=== PATIENT | female | born 1955 | race Caucasian/White ===

== ENCOUNTER → 2017-02-22 | Outpatient (CLI) | payer OTHER | END | disposition home or self-care (01) | LOC: GMAB 10:39 | PROVIDERS: ATTEND Family Medicine | DX: E03.9 Hypothyroidism, unspecified (principal) ==

== ENCOUNTER → 2017-05-13 | Outpatient (CLI) | payer OTHER ==
--- NOTE | 2017-05-14 10:36 | MAM ---
EXAM DESCRIPTION: Screening Mammogram,Bilateral CLINICAL HISTORY: 62 yearsFemaleSCREENINGno complaints. No family history breast cancer. Postmenopausal. No HRT. COMPARISON: 2-D screening bilateral digital mammography 07/21/2014. No prior reports available. Report from prior examination also reviewed. TECHNIQUE: Bilateral CC and MLO projection full-field images, 2-D digital screening mammographic technique. CAD was utilized. FINDINGS: The breast parenchymal density pattern is: Scattered areas of fibroglandular density. No skin thickening or nipple retraction multiple right axillary lymph nodes again noted.. Bilateral solitary microcalcifications. No focal, stellate mass or density, focal asymmetry , and no suspicious microcalcifications bilaterally. Stable mammograms dating back to prior study July 2014. IMPRESSION: BI-RADS CATEGORY: 2 - BENIGN FINDINGS. FOLLOW UP: Routine digital bilateral screening, one year interval from April 2017. Written communication explaining the IMPRESSION and follow-up, will be mailed to the patient and referring health care provider. According to the [employer], yearly mammograms are recommended starting at age 40 and continuing as long as a woman is in good health. Any breast change noted on a breast self-exam should be reported promptly to the patient's healthcare provider. Breast MRI is recommended for women with an approximately 20-25% or greater lifetime risk of breast cancer, including women with a strong family history of breast or ovarian cancer and women who have been treated for Hodgkin's disease. A negative mammographic report should not delay tissue diagnosis in patients with significant clinical history or physical findings. Extremely dense breast tissue limits the sensitivity of digital mammography. Electronically signed by: Michael Molina MD 05/14/2017 10:34 AM CDT
== END | disposition home or self-care (01) ==
LOC: MAMMO 10:40
PROVIDERS: ATTEND Family Medicine
DX: Z12.31 Encounter for screening mammogram for malignant neoplasm of breast (principal)

== ENCOUNTER → 2018-07-04 | Outpatient (CLI) | payer OTHER ==
--- NOTE | 2018-07-05 21:47 | RAD ---
EXAM DESCRIPTION: Foot,Right 3 Views: CR/ CLINICAL HISTORY: FOOT PAIN COMPARISON: Other orthopedic radiographs on this visit. TECHNIQUE: AP, lateral, and oblique images 3 views right foot. FINDINGS: Narrowing of the IP joints of the second through fourth toes. Arthrosis with marginal spurs superiorly in the second and third tarsometatarsal joints oriented no fractures. No abnormal radiodense objects in the soft tissues. IMPRESSION: Moderate Arthrosis in the second and third tarsometatarsal joints. No acute bony abnormality. Minimal arthrosis in the IP joints of the second through fourth toes Electronically signed by: Michael Molina MD 07/05/2018 9:45 PM [facility]
--- NOTE | 2018-07-05 21:50 | RAD ---
EXAM DESCRIPTION: Knee,Left Complete CLINICAL HISTORY: 63 F KNEE PAIN COMPARISON: Multiple orthopedic radiographs. TECHNIQUE: AP, lateral and patellar sunrise 4 views left knee. FINDINGS: Marginal spurs in the lateral and medial patellofemoral joint. No suprapatellar effusion. No loose bodies. No acute bony abnormality. Spurs in the midline tibia. Moderate narrowing of the medial compartment. IMPRESSION: Minimal arthrosis in the patellofemoral joint with moderate arthrosis in the medial compartment. No acute bony abnormality. Electronically signed by: Michael Molina MD 07/05/2018 9:48 PM [facility]
--- NOTE | 2018-07-05 21:51 | RAD ---
EXAM DESCRIPTION: Pelvis CLINICAL HISTORY: LEFT HIP PAIN COMPARISON: Multiple orthopedic radiographs on the same visit. TECHNIQUE: AP view only. FINDINGS: No fracture dislocation. Bone density. Hypertrophy of the superior lateral left acetabular facet. No joint space narrowing. Air density in the bilateral SI joints and the pubic symphysis. No abnormal radiodense objects in the soft tissues or joint spaces. IMPRESSION: No fracture. Arthrosis as described. Electronically signed by: Michael Molina MD 07/05/2018 9:49 PM [facility]
== END ==
LOC: RAD 07-03 02:31
PROVIDERS: ATTEND Orthopaedic Surgery
DX: M25.562 Pain in left knee (principal); M25.552 Pain in left hip; M79.671 Pain in right foot; M12.89 Other specific arthropathies, not elsewhere classified, multiple sites

== ENCOUNTER 2019-02-25 06:00 | Inpatient (IN) | payer OTHER ==
--- NOTE | 2019-02-12 10:25 | HP ---
CHIEF COMPLAINT: Left knee pain. HISTORY OF PRESENT ILLNESS: Alayna is a 63-year-old female with a history of severe knee pain. The pain has been present for several months and she has tried injections, anti-inflammatories, physical therapy and activity modification. She has failed to get relief and this is affecting her daily functioning. The pain is sharp, but she also has pain at night that seems to be dull and aching. It has been unresponsive to any other medicines. Because of the failure of relief, she has requested operative intervention. After discussing the risks, benefits and alternatives to total knee arthroplasty, she has given informed consent. PAST SURGICAL HISTORY: None. MEDICATIONS: 1. Losartan. 2. Synthroid. ALLERGIES: PHENERGAN. CODE STATUS: Full code. IMMUNIZATIONS: Up to date. SOCIAL HISTORY: The patient does not drink, smoke or use any illicit drugs. FAMILY HISTORY: None pertinent to today's complaint. REVIEW OF SYSTEMS: Negative except as indicated in the History of Present Illness. PHYSICAL EXAMINATION: VITAL SIGNS: Blood pressure 137/90. Pulse 89. Height 5'5". Weight 207 pounds. MENTAL STATUS: The patient is awake, alert, and is able to give a good history and participate in the physical. The patient is oriented to person, place and time. SKIN: Normal tone and turgor. HEENT: Normocephalic, atraumatic. Pupils equal, round and reactive. Mucosal membranes are moist. NECK: Normal range of motion. No thyromegaly, no lymphadenopathy. CHEST: Normal respiratory excursion. CARDIAC: Regular rate and rhythm. No murmurs, rubs or gallops. MUSCULOSKELETAL: She has bilateral upper extremities that show full active range of motion. She has intact sensation. They are warm and well perfused. There is no deformity. Strength is 5/5. She has no crepitus. The right lower extremity shows full active range of motion. She has intact sensation and it is warm and well perfused. The extremity has no deformity and no crepitus. There is no malalignment. The left lower extremity shows full range of motion of the hip. Range of motion in the knee is from full extension to about 120 degrees, but she has crepitus and pretty severe pain throughout that range. She has severe tenderness to palpation. She has no overall malalignment. There is no deformity. She has no varus/valgus or anterior/posterior laxity. Strength is 5/5. She walks with a slight antalgic gait. IMAGING: X-rays show advanced arthritis. ASSESSMENT: 1. Osteoarthritis. PLAN: The plan at this point is for total knee arthroplasty. We have discussed the risks, benefits, and alternatives to that and the patient has given informed consent. [id number]
[~2019-02-25 06:00] MED LIST changes: -HYDROmorphone PCA 0.2 MG/ML 1 BAG BAG IVPB SCH; +SODIUM CHL 0.9% 100ML MINI-BAG 100 ML IVPB ONE; +SODIUM CHLORIDE 0.9% 100ML 100 ML IVPB ONE; +SODIUM CHLORIDE 0.9% 250ML 250 ML ONE; +TRANEXAMIC ACID 1,000 MG/10 ML VIAL ONE; +VANCOMYCIN HCL INJ 1,000 MG VIAL IVPB ONE; +ceFAZolin SODIUM 1 GM VIAL ONE
[2019-02-25] MEDS ORDERED: ACETAMINOPHEN IV 1000MG 100 ML ONE (06:29)
[2019-02-25] MEDS ORDERED: fentaNYL CITRATE INJ 50 MCG/ML AMP ONE (06:29)
[2019-02-25] MEDS ORDERED: MORPHINE SULFATE *EPIDURAL* 0.5 MG/ML VIAL ONE (06:29)
[2019-02-25] MEDS ORDERED: MIDAZOLAM INJ 5 MG/5 ML VIAL ONE (06:29)
[2019-02-25] MEDS ORDERED: BUPIVACAINE 0.5% 30 ML VIAL INJ ONE (06:42)
[2019-02-25] MEDS ORDERED: ceFAZolin SODIUM 1 GM VIAL ONE ×2 (06:42→16:04)
[2019-02-25] MEDS ORDERED: KETAMINE HCL 100 MG/ML VIAL ONE (06:45)
[2019-02-25] MEDS: VANCOMYCIN HCL INJ 1,000 MG VIAL IVPB ONE ×2 (07:51→08:57)
[2019-02-25] MEDS: BUPIVACAINE 0.5% 30 ML VIAL INJ ONE ×2 (07:51→08:56)
[2019-02-25] MEDS: ceFAZolin SODIUM 1 GM VIAL ONE ×2 (07:51→08:57)
[2019-02-25] MEDS: BUPIVACAINE LIPOSOME 13.3 MG/ML VIAL INJ ONE ×2 (07:52→08:56)
[2019-02-25] MEDS ORDERED: ELECTROLYTE-A 1,000 ML IVS ONE (08:36)
[2019-02-25] MEDS ORDERED: SODIUM CHLORIDE 0.9% (FLUSH) 10 ML SYG IV PRN (09:19)
[2019-02-25] MEDS ORDERED: BISACODYL SUPPOSITORY 10 MG PR PRN (09:19)
[2019-02-25] MEDS ORDERED: MORPHINE SULFATE INJ 10 MG/ML VIAL IV PRN (09:19)
[2019-02-25] MEDS ORDERED: ZOLPIDEM TARTRATE 5 MG TAB PO PRN (09:19)
[2019-02-25] MEDS ORDERED: BENZOCAINE-MENTH LOZ (CEPACOL) 1 EA LOZ MT PRN (09:19)
[2019-02-25] MEDS ORDERED: TRANEXAMIC ACID INJ 1,000 MG in SODIUM CHLORIDE 0.9% 100ML 100 ML IVPB ONE (09:19)
[2019-02-25] MEDS ORDERED: TEMAZEPAM 15 MG CAP PO PRN (09:19)
[2019-02-25] MEDS ORDERED: ACETAMINOPHEN 500 MG TAB PO PRN (09:19)
[2019-02-25] MEDS ORDERED: DEX 5% W/NACL 0.45% 1000ML 1,000 ML IVS PRN (09:19)
[2019-02-25] MEDS ORDERED: MAGNESIUM HYDROXIDE 30 ML UD PO PRN (09:19)
[2019-02-25] MEDS ORDERED: MORPHINE SULFATE INJ 10 MG/ML VIAL IM PRN (09:19)
[2019-02-25] MEDS ORDERED: NALOXONE HCL INJ 0.4 MG/ML VIAL IV PRN (09:19)
[2019-02-25] MEDS ORDERED: HYDROcodone 5MG/APAP 325MG 1 EA TAB PO PRN (09:19)
[2019-02-25] MEDS ORDERED: ACETAMINOPHEN 325 MG TAB PO PRN (09:19)
[2019-02-25] MEDS ORDERED: MORPHINE PCA 1 MG/ML 100 ML BAG IVPB SCH (09:30)
--- NOTE | 2019-02-25 10:31 | OP ---
DATE OF PROCEDURE: 02/25/19 PREOPERATIVE DIAGNOSIS: 1. Left knee osteoarthritis. POSTOPERATIVE DIAGNOSIS: 1. Left knee osteoarthritis. PROCEDURE: 1. Total knee arthroplasty. SURGEON: Cesar Barboza MD. CREDIT OR LOANS OFFICER: Michael Herrmann CST, SA-C. ANESTHESIA: Regional anesthesia with sedation. COMPLICATIONS: None. FINDINGS: Severe arthritis of the knee. INDICATION: Ms. Acosta has a history of severe knee pain which has been refractory to conservative measures. Because of the ongoing pain, she has requested operative intervention. After discussing the risks, benefits and alternatives to total knee arthroplasty, the patient has given informed consent. PROCEDURE: The patient was brought to the Operating Room and placed in supine position. Anesthesia was induced and the patient's leg was sterilely prepped and draped. Following prepping and draping, the distal femur was exposed and using an intramedullary guide, the distal femoral cut was made. The appropriate sized cutting block was measured, pinned into place, and the anterior, posterior, and chamfer cuts were made. The ACL was transected and the tibia was subluxed. Both the medial and lateral menisci were removed. An intramedullary guide was used to make the proximal tibial cut. The appropriate sized base plate was placed and a trial polyethylene was placed. The trial femur was placed, the knee was reduced, and the knee was taken through a range of motion. The knee was stable in anterior, posterior, varus and valgus stress. The patella tracked anatomically without evidence of subluxation or dislocation. After trialing, the trial components were removed and the bony surfaces were thoroughly irrigated with saline. Following irrigation, the surfaces were dried and the final components were cemented into place. The excess cement was removed and the remaining cement was allowed to cure. The knee was again taken through a range of motion to confirm stability. The wound was then irrigated with saline and closure was performed using PDS to approximate the arthrotomy followed by closure of the subcutaneous tissues with a combination of running and interrupted Monocryl sutures. Sterile dressing was placed. The patient was awoken from anesthesia and taken to Recovery. POSTOPERATIVE PLAN: The patient will be weight-bearing as tolerated on postoperative day 1. COMPONENTS: [employer] Triathlon knee, size 3 femur, size 3 tibia, 11 mm insert. #[id number] [facility]
[2019-02-25] MEDS ORDERED: HYDROmorphone PCA 0.2 MG/ML 1 BAG BAG IVPB ONE (11:52)
[2019-02-25] MEDS: ONDANSETRON INJ 4 MG/2 ML VIAL IV PRN ×2 (12:07→17:38)
[2019-02-25] MEDS ORDERED: HYDROmorphone PCA 0.2 MG/ML 1 BAG BAG IVPB SCH (12:10)
[2019-02-25] MEDS: IV SET AND CAP CHANGE INJ INJ SCH (12:34)
[2019-02-25] MEDS ORDERED: PROPOFOL 200 MG/20 ML VIAL IV ONE (13:00)
[2019-02-25] MEDS ORDERED: raNITIdine HCL INJ 25 MG/ML VIAL IV ONE (13:00)
[2019-02-25] MEDS ORDERED: METOCLOPRAMIDE HCL INJ 10 MG/2 ML VIAL IV ONE (13:00)
[2019-02-25] MEDS ORDERED: ePHEDrine SULF 50 MG/ML IV ONE (13:00)
[2019-02-25] MEDS ORDERED: LIDOCAINE 1% 10 ML VIAL INJ ONE (13:00)
[2019-02-25] MEDS ORDERED: SODIUM CHLORIDE 0.9% 50 ML VIAL INJ ONE (13:00)
[2019-02-25] MEDS ORDERED: DEXAMETHASONE INJ 10 MG/ML VIAL IV ONE (13:00)
--- NOTE | 2019-02-25 13:20 | RAD ---
EXAM DESCRIPTION: Fluoroscopy Up to 1Hr CLINICAL HISTORY: left tka COMPARISON: 04 July 2018 TECHNIQUE: Fluoroscopy time is 6 seconds, one spot film. FINDINGS: Exam demonstrates a left total knee arthroplasty. Positioning is near anatomic. IMPRESSION: Left total knee arthroplasty. Electronically signed by: Jose Umanzor MD 02/25/2019 1:18 PM CDT
--- NOTE | 2019-02-25 13:31 | RAD ---
EXAM DESCRIPTION: Knee,Left 2 or More Views CLINICAL HISTORY: 63 years Female, TKA TECHNIQUE: 2 views of the left knee were performed. COMPARISON: July 04, 2018. FINDINGS: Mild diffuse osteopenia of the visualized bones noted. Recent postsurgical changes consistent with a left total knee arthroplasty, with intact hardware. The hardware appears in near normal anatomic alignment. Subcutaneous air pockets are noted likely sequela of recent surgery. Small suprapatellar joint effusion noted. IMPRESSION: 1. Recent postsurgical changes consistent with left total knee arthroplasty. The hardware appears in near normal anatomic alignment. Electronically signed by: Simon Reese MD 02/25/2019 1:29 PM CDT
[2019-02-25] MEDS ORDERED: ceFAZolin SODIUM 2 GRAMS PREMI 2 GM in PREMIX BAG 1 BAG IVPB SCH (16:00)
[2019-02-25] MEDS ORDERED: SODIUM CHL 0.9% 50ML MIN-BAG+ 50 ML IVPB ONE (16:05)
[2019-02-25] MEDS: ceFAZolin SODIUM 2 GM in SODIUM CHL 0.9% 50ML MIN-BAG+ 50 ML IVPB SCH ×2 (16:09→16:16)
[2019-02-25] MEDS: CELECOXIB 100 MG CAP PO SCH (16:10)
[2019-02-25] MEDS ORDERED: SODIUM CHLORIDE 0.9% 100ML 100 ML IVPB ONE (16:16)
[2019-02-25] MEDS: ceFAZolin SODIUM 2 GM in SODIUM CHLORIDE 0.9% 100ML 100 ML IVPB SCH (16:19)
[2019-02-25] MEDS ORDERED: VANCOMYCIN HCL INJ 1,000 MG VIAL IVPB ONE (17:34)
[2019-02-25] MEDS ORDERED: SODIUM CHLORIDE 0.9% 250ML 250 ML ONE (17:34)
[2019-02-25] MEDS: VANCOMYCIN HCL INJ 1,000 MG in SODIUM CHLORIDE 0.9% 250ML 250 ML IVPB SCH (17:39)
[2019-02-25] MEDS ORDERED: DOCUSATE CALCIUM 240 MG CAP ONE (18:57)
[2019-02-25] MEDS ORDERED: ENOXAPARIN SODIUM 30 MG/0.3 ML SYG SUBCU ONE (18:58)
[2019-02-25] MEDS ORDERED: diphenhydrAMINE HCL 50 MG/ML VIAL ONE (20:15)
[2019-02-25] MEDS ORDERED: diphenhydrAMINE HCL 25 MG CAP ONE (20:21)
[2019-02-25] MEDS: DOCUSATE CALCIUM 240 MG CAP PO SCH (20:24)
[2019-02-25] MEDS: diphenhydrAMINE HCL 25 MG CAP PO PRN (20:33)
[2019-02-25] MEDS: CYCLOBENZAPRINE HCL 10 MG TAB PO PRN (21:51)
[2019-02-25] MEDS: ALUMINUM & MAGNESIUM HYDROXIDE 30 ML UD PO PRN (22:13)
[2019-02-25] MEDS: HYDROcodone 10MG/APAP 325MG 1 EA TAB PO PRN (22:32)
[2019-02-25] MEDS: ENOXAPARIN SODIUM 30 MG/0.3 ML SYG SUBCU SCH (22:33)
[2019-02-26] MEDS ORDERED: ceFAZolin SODIUM 1 GM VIAL ONE ×4 (00:39→19:29)
[2019-02-26] MEDS ORDERED: SODIUM CHLORIDE 0.9% 100ML 100 ML IVPB ONE ×4 (00:39→19:29)
[2019-02-26] MEDS: ceFAZolin SODIUM 2 GM in SODIUM CHLORIDE 0.9% 100ML 100 ML IVPB SCH ×4 (01:00→23:41)
[2019-02-26] MEDS: HYDROcodone 10MG/APAP 325MG 1 EA TAB PO PRN ×4 (03:21→19:52)
[2019-02-26] MEDS: diphenhydrAMINE HCL 25 MG CAP PO PRN ×2 (03:21→21:45)
[2019-02-26] MEDS ORDERED: SODIUM CHLORIDE 0.9% 250ML 250 ML ONE (05:15)
[2019-02-26] MEDS ORDERED: VANCOMYCIN HCL INJ 1,000 MG VIAL IVPB ONE (05:16)
[2019-02-26] MEDS: VANCOMYCIN HCL INJ 1,000 MG in SODIUM CHLORIDE 0.9% 250ML 250 ML IVPB SCH (05:35)
[2019-02-26] MEDS: CYCLOBENZAPRINE HCL 10 MG TAB PO PRN ×2 (05:36→19:53)
[2019-02-26] MEDS: CELECOXIB 100 MG CAP PO SCH ×2 (07:32→16:46)
--- NOTE | 2019-02-26 07:55 | CONS ---
SUPERVISING PHYSICIAN: Mary Taylor MD CHIEF COMPLAINT: Postoperative left total knee arthroplasty. HISTORY OF PRESENT ILLNESS: Ms. Acosta is a 63-year-old female that has a longstanding history of severe knee pain. She had tried multiple injections, anti-inflammatories along with physical therapy and activity modification without any significant result. Due to the failure outpatient conservative treatments and the fact that she was continuing to have sharp pain at night that was hindering her activities of daily living, she requested surgical intervention with left total knee arthroplasty. She was admitted for elective total knee arthroplasty. She had a successful spinal block in the Operating Room without any complications. She was seen in the immediate postoperative state in stable condition. PAST MEDICAL HISTORY: 1. Hypertension. 2. Hypothyroidism. PAST SURGICAL HISTORY: 1. Cholecystectomy. 2. Hysterectomy. 3. Bilateral tubal ligation. HOME MEDICATIONS: 1. Levothyroxine 150 mcg daily. 2. Losartan 100 mg daily. ALLERGIES: PROMETHAZINE. FAMILY HISTORY: Positive for heart disease. Mother at age 74 with a stroke and Alzheimer's. Father at age 74 with a stroke and heart disease. She has one brother who has a pacemaker. She has a sister that is healthy and one brother that is diabetic, at age 49 due to unsuccessful gastric bypass surgery and also had positive history of cerebrovascular accident. REVIEW OF SYSTEMS: CONSTITUTIONAL: Denies general malaise, fatigue, fevers or unintentional weight changes. HEENT: Negative for sore throats, earaches, nasal congestion, vision changes, hearing changes. RESPIRATORY: Negative for shortness of breath, wheezing, coughing, productive cough. CARDIOVASCULAR: Negative for chest pain, palpitations or syncopal episodes. GASTROINTESTINAL: Negative for nausea, vomiting, diarrhea, constipation or abdominal pain. GENITOURINARY: Negative for dysuria, hematuria, polyuria. MUSCULOSKELETAL: As noted in history of present illness. NEUROLOGIC: Negative for ataxia, seizures, syncopal episodes, vision changes, headache, migraines or other neurosensory deficits. PHYSICAL EXAMINATION: VITAL SIGNS: Temperature 97.5. Pulse 72. Blood pressure 121/79. Respirations 16. Oxygen saturation 94% on room air. Admission weight 93.6 kg. GENERAL: The patient is resting comfortably with her left leg in CPM. She is alert. HEENT: Tympanic membranes clear bilaterally. Oropharynx is pink, moist without any lesions. NECK: Supple, nontender with full range of motion. No jugular venous distention noted. RESPIRATORY: Lungs clear to auscultation bilaterally without any rhonchi, wheezes or rales. CARDIOVASCULAR: Regular rate and rhythm without any appreciable murmurs, gallops, or rubs. ABDOMEN: Soft, nontender. Positive bowel sounds. EXTREMITIES: Left knee has a bulky dressing in place. Capillary refill is brisk distally with bilateral pulses 2+. NEUROLOGIC: The patient is alert and oriented times three. LABORATORY: Postoperative hemoglobin and hematocrit for in the morning. ASSESSMENT: 1. Postoperative day 0 for elective left total knee arthroplasty after attempted conservative measures with failure of treatment with surgery performed by Dr. Cesar Barboza, orthopedic surgeon. 2. Hypertension. 3. Hypothyroidism. PLAN: We will follow the patient as she progresses through her recovery, physical therapy and rehabilitation efforts. We will resume her home medications once those have been updated and verified. We will encourage good pulmonary hygiene. We will anticipate length of stay to be at least two to three days. Until the patient can transition to outpatient management, we will continue to monitor and treat as needed. [facility][id number] [facility]
[2019-02-26] MEDS: MAGNESIUM OXIDE 400 MG TAB PO SCH (09:12)
[2019-02-26] MEDS: LACTOBACILLUS 1 TAB PO SCH ×4 (09:12→20:53)
--- NOTE | 2019-02-26 09:20 | PN ---
DATE: 02/26/19 SUBJECTIVE: She is doing well. Her spinal has worn off. Her pain is well controlled right now. OBJECTIVE: Afebrile. Vital signs stable. Dressing is clean, dry and intact. ASSESSMENT: Status post total knee arthroplasty. PLAN: The plan is to begin weightbearing as tolerated today. #[id number] [facility]TDD
[2019-02-26] MEDS ORDERED: ALUM & MAG HYDROX-SIMETHICONE 30 ML UD PO PRN (09:47)
[2019-02-26] MEDS: CALCIUM CARBONATE (ANTACID) 500 MG CHEWABLE TAB PO PRN ×2 (10:03→14:35)
[2019-02-26] MEDS: LOSARTAN POTASSIUM 100 MG TAB PO SCH (10:34)
[2019-02-26] MEDS: LEVOTHYROXINE SODIUM 150 MCG PO SCH (10:35)
[2019-02-26] MEDS: ENOXAPARIN SODIUM 30 MG/0.3 ML SYG SUBCU SCH ×2 (10:38→22:08)
[2019-02-26] MEDS: traMADol HCL 50 MG TAB PO PRN (14:35)
[2019-02-26] MEDS: ALUMINUM & MAGNESIUM HYDROXIDE 30 ML UD PO PRN (19:47)
[2019-02-26] MEDS: DOCUSATE CALCIUM 240 MG CAP PO SCH (20:53)
[2019-02-27] MEDS: HYDROcodone 10MG/APAP 325MG 1 EA TAB PO PRN ×4 (06:10→20:40)
[2019-02-27] MEDS: LEVOTHYROXINE SODIUM 150 MCG PO SCH (06:10)
[2019-02-27] MEDS: CYCLOBENZAPRINE HCL 10 MG TAB PO PRN (06:11)
[2019-02-27] MEDS: CELECOXIB 100 MG CAP PO SCH ×2 (07:28→17:19)
[2019-02-27] MEDS ORDERED: ceFAZolin SODIUM 1 GM VIAL ONE ×2 (08:30→16:28)
[2019-02-27] MEDS ORDERED: SODIUM CHLORIDE 0.9% 100ML 100 ML IVPB ONE ×2 (08:30→16:28)
[2019-02-27] MEDS: LACTOBACILLUS 1 TAB PO SCH ×4 (08:43→20:37)
[2019-02-27] MEDS: SODIUM CHLORIDE 0.9% (FLUSH) 10 ML SYG IV SCH ×2 (08:43→20:37)
[2019-02-27] MEDS: LOSARTAN POTASSIUM 100 MG TAB PO SCH (08:43)
[2019-02-27] MEDS: ceFAZolin SODIUM 2 GM in SODIUM CHLORIDE 0.9% 100ML 100 ML IVPB SCH ×2 (08:43→16:45)
[2019-02-27] MEDS: MAGNESIUM OXIDE 400 MG TAB PO SCH (08:43)
[2019-02-27] MEDS: traMADol HCL 50 MG TAB PO PRN (08:44)
[2019-02-27] MEDS: ENOXAPARIN SODIUM 30 MG/0.3 ML SYG SUBCU SCH ×2 (11:21→22:51)
[2019-02-27] MEDS: CALCIUM CARBONATE (ANTACID) 500 MG CHEWABLE TAB PO PRN ×2 (12:40→21:52)
--- NOTE | 2019-02-27 15:07 | PN ---
DATE: 02/27/19 SUPERVISING PHYSICIAN: Bao Taylor MD SUBJECTIVE: The patient is sitting up in her chair. No complaints of shortness of breath, nausea, vomiting, diarrhea or chest pain. She did not have a very good day yesterday but feels much improved today. OBJECTIVE: VITAL SIGNS: Temperature 98.7, heart rate 95, blood pressure 140/58, respiratory rate 16, 02 saturation 94% on room air. RESPIRATORY: Essentially clear to auscultation bilaterally. CARDIAC: Regular rate and rhythm. GI: Abdomen soft, nondistended, non-tender. Bowel sounds are positive. EXTREMITIES: Dressing to her left knee is dry and intact. Bilateral pedal pulses are palpable +2. NEUROLOGIC: She is awake, alert, and oriented x3. LABORATORY/RADIOLOGY: There are no labs or films to report today. ASSESSMENT: 1. Postoperative day #2 for elective left total knee arthroplasty after attempted conservative measures with failure of treatment with surgery performed by Dr. Cesar Barboza, orthopedic surgeon. 2. Hypertension. 3. Hypothyroidism. PLAN: We will continue present supportive care. She will continue with her physical therapy for strengthening and conditioning. Dr. Barboza will be contacted for orthopedic issues. She will be discharged as per recommendations per physical therapy as she completes her therapy and hopefully that will be in the next day or two. She will have outpatient physical therapy at the [facility] after discharge and we will continue to monitor closely and follow as needed. #[id number] MTDD
[2019-02-27] MEDS: DOCUSATE CALCIUM 240 MG CAP PO SCH (20:37)
[2019-02-28] MEDS: HYDROcodone 10MG/APAP 325MG 1 EA TAB PO PRN ×5 (00:56→18:38)
[2019-02-28] MEDS: CYCLOBENZAPRINE HCL 10 MG TAB PO PRN ×2 (03:42→17:19)
[2019-02-28] MEDS: LEVOTHYROXINE SODIUM 150 MCG PO SCH (06:49)
[2019-02-28] MEDS: CELECOXIB 100 MG CAP PO SCH ×2 (08:17→17:16)
[2019-02-28] MEDS: LACTOBACILLUS 1 TAB PO SCH ×4 (09:06→20:35)
[2019-02-28] MEDS: LOSARTAN POTASSIUM 100 MG TAB PO SCH (10:27)
[2019-02-28] MEDS: MAGNESIUM OXIDE 400 MG TAB PO SCH (10:28)
[2019-02-28] MEDS: ENOXAPARIN SODIUM 30 MG/0.3 ML SYG SUBCU SCH ×2 (13:08→22:42)
[2019-02-28] MEDS: SODIUM CHLORIDE 0.9% (FLUSH) 10 ML SYG IV SCH ×2 (13:17→20:37)
[2019-02-28] MEDS: IV SET AND CAP CHANGE INJ INJ SCH (13:18)
--- NOTE | 2019-02-28 15:27 | PN ---
DATE: 02/28/19 SUBJECTIVE: She is doing well and her pain is well controlled. OBJECTIVE: She is afebrile. Vital signs are stable. Wound is clean. There are no signs or symptoms of infection. ASSESSMENT: 1. Status post total knee arthroplasty. PLAN: The plan at this point is for her to be discharged tomorrow. She will be doing outpatient physical therapy. #[id number] MTDD
[2019-02-28] MEDS: DOCUSATE CALCIUM 240 MG CAP PO SCH (20:35)
[2019-02-28] MEDS ORDERED: BISACODYL SUPPOSITORY 10 MG PR ONE (21:00)
[2019-02-28] MEDS ORDERED: MAGNESIUM HYDROXIDE 30 ML UD PO ONE (21:00)
--- NOTE | 2019-02-28 21:14 | PN ---
DATE: 02/28/19 SUPERVISING PHYSICIAN: Bao Taylor M.D. SUBJECTIVE: The patient is sitting on the side of her bed. She has no complaints of chest pain, nausea, vomiting or shortness of breath. Her pain is under better control than it was and she still feels she is somewhat weak, but feels like her physical therapy is progressing. OBJECTIVE: VITAL SIGNS: Temperature 97.9, heart rate 90, blood pressure 110/71, respiratory rate 18, O2 sat 94% on room air. RESPIRATORY: Essentially clear to auscultation bilaterally. CARDIAC: Regular rate and rhythm. GASTROINTESTINAL: Abdomen is soft, nondistended, non-tender. Bowel sounds are positive. EXTREMITIES: There is an island dressing to her left knee that is dry and intact. Bilateral pedal pulses are palpable at +2. LABORATORY: There are no labs or films to report today. ASSESSMENT: 1. Postoperative day #3 for elective left total knee arthroplasty after attempted conservative measures with failure of treatment with surgery performed by Dr. Cesar Barboza, orthopedic surgeon. 2. Hypertension. 3. Hypothyroidism. PLAN: We will continue present supportive care. Orthopedic issues will be per Dr. Cesar Barboza, orthopedic surgeon. She will continue with her physical therapy for strengthening and conditioning. Plan for discharge after physical therapy tomorrow morning. She will begin her physical therapy at the [facility] on Saturday. Until then we will continue to monitor closely and follow as needed. #[id number] and [id number] [facility]
[2019-03-01] MEDS: HYDROcodone 10MG/APAP 325MG 1 EA TAB PO PRN ×2 (00:37→08:29)
[2019-03-01] MEDS: CYCLOBENZAPRINE HCL 10 MG TAB PO PRN ×2 (01:28→08:29)
[2019-03-01] MEDS: traMADol HCL 50 MG TAB PO PRN (03:12)
[2019-03-01 06:16] VITALS: TEMP 98.3
[2019-03-01] MEDS: LEVOTHYROXINE SODIUM 150 MCG PO SCH (06:32)
[2019-03-01] MEDS: CELECOXIB 100 MG CAP PO SCH (07:30)
[2019-03-01] MEDS: MAGNESIUM OXIDE 400 MG TAB PO SCH (09:55)
[2019-03-01] MEDS: LOSARTAN POTASSIUM 100 MG TAB PO SCH (09:55)
[2019-03-01] MEDS: LACTOBACILLUS 1 TAB PO SCH (09:55)
--- NOTE | 2019-03-01 11:48 | PN ---
DATE: 03/01/19 SUBJECTIVE: She is doing well and her pain is well controlled. She is ready to go home. OBJECTIVE: She is afebrile. Vital signs are stable. Wound is clean. There are no signs or symptoms of infection. ASSESSMENT: 1. Status post total knee arthroplasty. PLAN: The plan at this point is for discharge. She will followup with us in approximately 2 weeks. She has been instructed to return immediately should any change in her condition occur. #[id number] MTDD
[2019-03-01] MEDS: ENOXAPARIN SODIUM 30 MG/0.3 ML SYG SUBCU SCH (12:10)
[2019-03-01 12:52] VITALS: BP 162/93; O2SAT 96
[2019-03-01] MEDS: SODIUM CHLORIDE 0.9% (FLUSH) 10 ML SYG IV SCH (12:54)
--- NOTE | 2019-03-09 10:42 | DS ---
SUPERVISING PHYSICIAN: Mary Taylor MD DISCHARGE DIAGNOSIS: 1. Postoperative day #4 for elective left total knee arthroplasty after failed conservative measures, operative intervention by Dr. Cesar Barboza, orthopedic surgeon. 2. Hypertension. 3. Hypothyroidism. HISTORY OF PRESENT ILLNESS: This is a 63-year-old female patient who has had a long history of severe left knee pain. She has had multiple injections, anti- inflammatories along with physical therapy and activity modification. Due to the failure outpatient conservative treatments, she requested Dr. Cesar Barboza, orthopedic surgeon, to do surgical intervention with a left total knee arthroplasty. On the date of admission, she had the left total knee arthroplasty. There were no intraoperative complications and she was admitted to the hospital to the Medical/Surgical Floor postoperatively in stable condition. HOSPITAL COURSE: The patient had her routine medications restarted. She was encouraged with good pulmonary hygiene. She started her physical therapy for strengthening and conditioning. She slowly progressed and met her physical therapy goals. There were no complications during her hospital stay and she will be discharged home today in stable condition. LABORATORY: Her postoperative day #1 hemoglobin was 12.3 and hematocrit 37.8. Her admission UDS was negative. DISCHARGE PLAN: The patient will be discharged home in stable condition. She is to resume her previous diet and all of her previous medications. She is to have physical therapy per the [facility] physical [facility] department. She has a followup appointment with Dr. Barboza on 03/13/19 at 8 AM. In addition to her routine medications, she is also to have cyclobenzaprine, Xarelto for 7 days, tramadol and hydrocodone. She is to return to the hospital or followup with Dr. Barboza for any problems or complications. DISCHARGE MEDICATIONS: 1. Levothyroxine. 2. Losartan. 3. Cyclobenzaprine. 4. Hydrocodone. 5. Xarelto. 6. Tramadol. [facility][id number] [facility]
== END 2019-03-01 12:00 | disposition home or self-care (01) | DRG 470 ==
LOC: AMB 06:00 → MS 11:29
PROVIDERS: ADMIT Orthopaedic Surgery; ATTEND Nurse Practitioner Acute Care
PROC: 3E0T3BZ Introduction of Anesthetic Agent into Peripheral Nerves and Plexi, Percutaneous Approach (ICD-10-PCS; 2019-02-25)
PROC: 0SRD0J9 Replacement of Left Knee Joint with Synthetic Substitute, Cemented, Open Approach (ICD-10-PCS; principal; 2019-02-25 06:57)
DX: M17.12 Unilateral primary osteoarthritis, left knee (principal); I10 Essential (primary) hypertension; E03.9 Hypothyroidism, unspecified; E66.9 Obesity, unspecified; Z68.33 Body mass index [BMI] 33.0-33.9, adult; Z79.899 Other long term (current) drug therapy; Z88.8 Allergy status to other drugs, medicaments and biological substances

== ENCOUNTER → 2019-02-25 | Day surgery (SDC) | payer OTHER ==
[~2019-02-25] MED LIST: HYDROmorphone PCA 0.2 MG/ML 1 BAG BAG IVPB SCH; LACTATED RINGERS 1,000 ML ONE
[2019-02-25 11:45] VITALS: BP 125/81; TEMP 97.2; O2SAT 96
== END ==
LOC: AMB 05:35 → MS 11:29 → UNDOADMIN 11:29 → UNDODISIN 12:58 → AMB 13:00
PROVIDERS: ATTEND Orthopaedic Surgery
DX: Z53.9 Procedure and treatment not carried out, unspecified reason (principal)